=== PATIENT | female | born 1980 | race Caucasian/White ===

== ENCOUNTER 2022-09-17 09:52 | Outpatient (CLI) | payer OTHER, SELFPAY ==
--- NOTE | 2022-09-17 10:15 | CRLHL7_ITS ---
For Patients: As a result of the Century Cures Act, medical imaging exams and procedure reports are released immediately into your electronic medical record. You may view this report before your referring provider. If you have questions, please contact your health care provider. BILATERAL SCREENING MAMMOGRAM WITH COMPUTER-AIDED DETECTION AND TOMOSYNTHESIS TECHNIQUE: CC and MLO views were obtained. These mammographic images have been obtained using full-field digital technique. These mammographic images were interpreted with the benefit of computer-aided detection. Breast Tomosynthesis was used in this interpretation. COMPARISON FILM: 07/01/21, ([facility]NO[facility] 11/20/16). FINDINGS: The breasts are heterogeneously dense, which may obscure small masses IMPRESSION: There is no radiographic evidence for malignancy. ASSESSMENT: BI-RADS Category 1: Negative RECOMMENDATION: Routine screening mammogram in 1 year. A lay language report of this examination will be provided to the patient. Jason Cooley M.D. Diagnostic Radiologist [email or web address] DONALD/[email or web address] / be/Dictated by: Jason Cooley MD @ 09/17/2022 11:46:00 AM (Electronically Signed)
== END 2022-09-17 09:53 | disposition home or self-care (01) ==
LOC: MAMMO 09:53
PROVIDERS: PCP Physician Assistant Medical; Visit Provider Physician Assistant Medical
DX: Z12.31 Encounter for screening mammogram for malignant neoplasm of breast (principal); R92.2 Inconclusive mammogram
CPT/HCPCS: 77063; 77067

== ENCOUNTER 2023-09-11 09:40 | Outpatient (REF) | payer OTHER, SELFPAY | END 2023-09-11 09:41 | disposition home or self-care (01) | LOC: NFLDREF 09:40 | PROVIDERS: PCP Physician Assistant Medical; Referring Provider Physician Assistant Medical; Visit Provider Physician Assistant Medical | DX: Z13.228 Encounter for screening for other metabolic disorders (principal); Z13.220 Encounter for screening for lipoid disorders; Z13.29 Encounter for screening for other suspected endocrine disorder | CPT/HCPCS: 80053; 80061; 84443 ==

== ENCOUNTER 2023-09-21 13:14 | Outpatient (CLI) | payer OTHER, SELFPAY ==
--- NOTE | 2023-09-21 13:20 | MM_ITS ---
Patient: SOFIA COLE Facility:?[facility] Patient ID:?[id number] Site Patient ID:?[id number]. Site :?1980 Study:?XRay-Breast Bilateral 3D W/CAD-09/21/2023 3:42:54 PM Ordering Physician:Mine Final Report: BILATERAL SCREENING MAMMOGRAM WITH COMPUTER-AIDED DETECTION AND TOMOSYNTHESIS TECHNIQUE: CC and MLO views were obtained. These mammographic images have been obtained using full-field digital technique. These mammographic images were interpreted with the benefit of computer-aided detection. Breast Tomosynthesis was used in this interpretation. COMPARISON FILM: 09/17/22, 07/01/21, 11/20/16(LT). FINDINGS: The breasts are heterogeneously dense, which may obscure small masses. IMPRESSION: There is no radiographic evidence for malignancy. ASSESSMENT: BI-RADS Category 1: Negative RECOMMENDATION: Routine screening mammogram in 1 year. A lay language report of this examination will be provided to the patient. Jason Cooley M.D. Diagnostic Radiologist [email or web address] DSM/sp R& Transcribed: 3:32 p.m. SP/Dictated by: Jason Cooley MD @ 09/22/2023 8:45:00 AM Signed by:?Jason Cooley MD @09/23/2023 5:28:01 AM (Electronic Signature)
== END 2023-09-21 13:15 | disposition home or self-care (01) ==
LOC: MAMMO 13:15
PROVIDERS: PCP Physician Assistant Medical; Visit Provider Physician Assistant Medical
DX: Z12.31 Encounter for screening mammogram for malignant neoplasm of breast (principal); R92.2 Inconclusive mammogram
CPT/HCPCS: 77063; 77067

== ENCOUNTER 2023-09-23 12:31 | Emergency (ER) | payer OTHER, SELFPAY ==
[2023-09-23 12:40] VITALS: BP 108/77; PULSE 79; RESP 18; TEMP 36.5; O2SAT 100; BMI 26.6
--- NOTE | 2023-09-23 12:47 | XR_ITS ---
Patient: SOFIA COLE Facility:?[facility] Patient ID:?[id number] Site Patient ID:?[id number]. Site :?[id number] Study:?XRay-Chest 1V-09/23/2023 1:22:02 PM Ordering Physician:?DR. CANTRELL Final Report: Indication: Chest pain. Technique: 1 view(s) of the chest. Comparison: None available. Findings: Normal cardiomediastinal silhouette and pulmonary vasculature. Lungs are well inflated and clear. No focal consolidation, pleural effusion or pneumothorax. No acute osseous abnormality. Impression: No acute cardiopulmonary abnormality identified. Dictated by Heather Fernandez MD @ 09/23/2023 1:39:03 PM Signed by:?Heather Fernandez MD @09/23/2023 1:39:03 PM (Electronic Signature)
--- NOTE | 2023-09-23 12:54 | ED.GENADULT ---
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 She recently had an slightly elevated glucose but a normal A1c. This was at her read routine checkup. She felt this should be checked out today and presented to the ER. She has had no diaphoresis no nausea no neck or arm pain no radiation of discomfort she really describes a pain but more of a feeling of ?a bubble underneath by sternum?. Patient denies leg swelling, denies travel, denies bleeding or clotting problems. Does have an extensive history of mental health issues including migraine headache ext to borderline personality ADHD anxiety depression posttraumatic stress. Patient reports her mental health been stable. Related Data Home Medications Medication Instructions Recorded Confirmed clonidine HCl 0.1 mg tablet 0.1 mg PO BID 04/22/22 09/16/23 duloxetine 60 mg capsule,delayed 60 mg PO BID 04/22/22 09/16/23 release fluoxetine 40 mg capsule 40 mg PO DAILY 04/22/22 09/16/23 gabapentin 600 mg tablet 1,200 mg PO TID 04/22/22 09/16/23 glycopyrrolate 1 mg tablet mg PO BID 04/22/22 09/16/23 olanzapine 5 mg tablet 20 mg PO DAILY 04/22/22 09/16/23 brexpiprazole 2 mg tablet (Rexulti) 2 mg PO QAM 09/16/23 09/16/23 Previous Rx's Medication Instructions Recorded clotrimazole-betamethasone 1 1 applic topical BID #45 grams 09/16/23 %-0.05 % topical cream Allergies Allergy/AdvReac Type Severity Reaction Status Date / Time methocarbamol Allergy Intermediate Rash Verified 09/16/23 12:44 Penicillins Allergy Intermediate Swelling Verified 09/16/23 12:44 of Lip/Tongue/Throat Review of Systems Status of ROS: Reports: 6 or more systems reviewed and unremarkable except as noted in History and below [facility] Medical History Endometriosis (04/26/12) ?N80.9 - Endometriosis, unspecified (ICD-10) Vaginal after ?O34.219 - Maternal care for unspecified type scar from previous delivery (ICD-10) Ruptured ovarian cyst ?N83.209 - Unspecified ovarian cyst, unspecified side (ICD-10) Surgical History History of abdominoplasty ?Z98.890 - Other specified postprocedural states (ICD-10) Status post total abdominal hysterectomy ?Z90.710 - Acquired absence of both cervix and uterus (ICD-10) History of right salpingo-oophorectomy ?Z90.79 - Acquired absence of other genital organ(s) (ICD-10) ?Z90.721 - Acquired absence of ovaries, unilateral (ICD-10) History of exploratory laparotomy ?Z98.890 - Other specified postprocedural states (ICD-10) History of cystoscopy ?Z98.890 - Other specified postprocedural states (ICD-10) History of colposcopy ?Z98.890 - Other specified postprocedural states (ICD-10) History of section (09/06/12) ?Z98.891 - History of uterine scar from previous surgery (ICD-10) Family History Brother Coronary artery disease Father Coronary artery disease Uncle Coronary artery disease Aunt Diabetes Social History What is your current living situation?: I presently have a place to live Problems where you live: no known problems In the past 12 months, utilities in danger of being shut off: no In past 12 months, lack of transportation kept you from medical appts, meetings, work, or getting things needed for daily living: no In the past 12 mos, have been you worried that your food would run out before you had money to buy more?: never true In the past 12 mos, the food you bought just didn't last and you didn't have money to buy more?: never true Smoking Status: Former smoker How often does anyone, including family, friends and others, physically hurt you: never How often does anyone, including family, friends and others, insult or talk down to you: never How often does anyone, including family, friends and others, threaten you with harm: never How often does anyone, including family, friends and others, scream or curse at you: never Little interest or pleasure in doing things: several days Feeling down, depressed, or hopeless: several days Exam Narrative: Exam Narrative: Objective: Vital signs are within normal limits, blood pressure is 108/77 O2 sat 100% on room air In general patient apparent distress noncyanotic no difficulty breathing no complaint of pain or discomfort. HEENT is unremarkable neck supple nodes chest is clear heart rhythm regular heart murmur no palpable chest wall pain abdomen benign soft extremities are no edema neurologic nonfocal good peripheral perfusion legs without swelling. Const: Vital Signs, click to edit/add: Vital Signs - 24 hr 09/23/23 12:40 09/23/23 13:00 09/23/23 14:30 Temperature 97.7 F Pulse Rate [Pulse Oximeter] 79 73 73 Respiratory Rate 18 Blood Pressure [Ri ght Upper Arm] 108/77 120/76 113/78 Pulse Oximetry 100 97 95 Oxygen Delivery Me thod Room Air Room Air Room Air Course Vital Signs Vital signs: Initial Vital Signs Temperature 97.7 F 09/23/23 12:40 Temperature Source Temporal Artery Scan 09/23/23 12:40 Pulse Rate 79 09/23/23 12:40 Pulse Rhythm Regular 09/23/23 12:40 Pulse Strength 3+ Normal 09/23/23 12:40 Respiratory Rate 18 09/23/23 12:40 Blood Pressure 108/77 09/23/23 12:40 Blood Pressure Mean 87 09/23/23 12:40 Blood Pressure Position Sitting 09/23/23 12:40 Pulse Oximetry 100 09/23/23 12:40 Oxygen Delivery Method Room Air 09/23/23 12:40 Vital Signs Temperature 97.7 F 09/23/23 12:40 Pulse Rate 79 09/23/23 12:40 Respiratory Rate 18 09/23/23 12:40 Blood Pressure 108/77 09/23/23 12:40 Pulse Oximetry 100 09/23/23 12:40 Oxygen Delivery Method Room Air 09/23/23 12:40 Temperature 97.7 F 09/23/23 12:40 Pulse Rate 73 09/23/23 14:30 Respiratory Rate 18 09/23/23 12:40 Blood Pressure 113/78 09/23/23 14:30 Pulse Oximetry 95 09/23/23 14:30 Oxygen Delivery Method Room Air 09/23/23 14:30 Medications Administered Medications: Discontinued Medications Generic Name Dose Route Start Last Admin Trade Name Jesus PRN Reason Stop Dose Admin Aspirin 324 mg 09/23/23 12:48 09/23/23 13:00 Aspirin 81 Mg Tab.Chew PO 09/23/23 12:49 324 mg ONCE ONE Administration Sodium Chloride 500 mls @ 500 mls/hr 09/23/23 12:46 09/23/23 13:53 0.9 % Sodium Chloride 500 Ml IV 09/23/23 13:45 Infused .Q1H ONE Infusion Medical Decision Making MDM Narrative Medical decision making narrative: 43-year-old female with multiple mental health problems presents with a bubble feeling under her sternum, a slight probably anxiety about her blood pressure. Slightly elevated blood pressure from baseline. 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 Will get a chest x-ray, labs, p.o. aspirin. Disposition pending findings above and clinical status. Addendum 3:00 p.m.: The patient remains asymptomatic, she feels better, she did get aspirin. She has a normal EKG by my read no acute ST T wave changes she has a negative troponin. She has a negative chest x-ray. Laboratory studies show a normal white count normal hemoglobin, D-dimer is negative, ER profile is unremarkable, LFTs are normal, CRP is less than 0.5, proBNP is less than 20, viral studies are negative, test is negative. At this point I would recommend observation fluids continue to monitor blood pressure, P 1 confirm blood pressure readings with the pharmacy type blood pressure monitor compared to her own home monitor. Recheck with primary care in the next few days changes concerns worsening return to the ED. Patient was comfortable plan will follow up as directed thanks Lab Data Labs: Lab Results 09/23/23 09/23/23 09/23/23 Range/Units 12:47 13:05 13:12 WBC 9.10 (4.50-11.00) K/uL RBC 4.64 (4.00-5.20) m/uL Hgb 14.1 (12.0-16.0) gm/dL Hct 42.2 (33.0-51.0) % MCV 91 (80-100) fL MCH 30 (26-34) pg MCHC 33 (32-36) gm/dL RDW Coeff of Yady 12.9 (11.5-15.5) % Plt Count 280 (140-440) K/uL Neut % (Auto) 61.3 (42.0-72.0) % Lymph % (Auto) 29.1 (20-44) % [place] % (Auto) 6.2 (0.0-11.0) % Eos % (Auto) 2.3 (0.0-7.0) % Baso % (Auto) 0.3 (0.0-3.0) % Neut # (Auto) 5.58 (1.7-7.0) K/uL Lymph # (Auto) 2.65 (0.90-2.90) K/uL [place] # (Auto) 0.60 (0.00-0.90) K/UL Eos # (Auto) 0.21 (0.00-0.50) K/uL Baso # (Auto) 0.03 (0.00-0.30) K/uL Abs Immat Gran (auto) 0.07 (0.00-0.30) K/uL Imm/Tot Granulo (auto) 0.8 % INR 0.87 L (0.91-1.10) APTT 34 H (23-33) Seconds D-Dimer Quant (PE/DVT) 0.27 (0.00-0.50) ug/ml Sodium 136 (135-149) mmol/L Potassium 3.9 (3.6-5.1) mmol/L Chloride 102 (96-114) mmol/L Carbon Dioxide 23 (20-32) mmol/L Anion Gap 11 (7-15) mEq/L BUN 14 (5-24) mg/dL Creatinine 0.9 (0.5-1.5) mg/dL Estimated Creat Clear 72.53 Estimated GFR 81 ml/min Glucose 98 (60-115) mg/dL Calcium 9.5 (8.4-10.6) mg/dL Total Bilirubin 0.3 (0.1-1.5) mg/dL Direct Bilirubin 0.1 (0.0-0.5) mg/dL AST 23 (12-35) U/L ALT 25 (4-35) U/L Alkaline Phosphatase 55 (40-150) U/L C-Reactive Protein < 0.5 L (0.5-1.0) mg/dL NT-Pro-B Natriuret Pep < 20 pg/mL Total Protein 7.7 (6.0-8.3) g/dL Albumin 4.5 (3.3-5.0) g/dL HCG, Qual Negative (Negative) SARS-CoV-2 (PCR) Negative SARS-CoV-2 (Negative) Influenza Type A (PCR) Negative PCR FLU A (Negative) Influenza Type B (PCR) Negative PCR FLU B (Negative) RSV (PCR) Negative PCR RSV (Negative) POC Troponin I 0.01 (0.01-0.04) ng/ml Discharge Plan Discharge Clinical Impression: Elevated blood pressure reading, Chest fullness Patient Disposition: Home w/ Parent or Adult Condition: Improved Additional Instructions: Observe, normal activity, may wish to try some Maalox or antacid for few days. Your studies today look very reassuring including the lungs, the heart, the blood work. Recommend recheck with regular doctor next few days if continued problems or concerns or a continued elevated blood pressure, can return to the ED any time. Activity Level: No Restrictions Discharge Diet: Regular Prescriptions: No Action duloxetine 60 mg capsule,delayed release(DR/EC) 60 mg PO BID olanzapine 5 mg tablet 20 mg PO DAILY gabapentin 600 mg tablet 1,200 mg PO TID clonidine HCl 0.1 mg tablet 0.1 mg PO BID fluoxetine 40 mg capsule 40 mg PO DAILY glycopyrrolate 1 mg tablet PO BID Rexulti 2 mg tablet 2 mg PO QAM clotrimazole-betamethasone 1-0.05 % cream 1 applic topical BID Qty: 45 1RF Follow Up/Referrals: Meet Patel PANeelC [Primary Care Provider] - Stand Alone Forms: [employer] Info Instructions
[2023-09-23 13:00] VITALS: BP 120/76; PULSE 73; O2SAT 97
[2023-09-23] MEDS: ASPIRIN 81 MG TAB.CHEW 324 MG PO (13:00)
[2023-09-23] MEDS: 0.9 % SODIUM CHLORIDE 500 ML 500 ML IV (13:00)
[2023-09-23 13:25] LABS: Basophils Absolute Auto 0.03 K/uL (0.00-0.30); Basophils Percent Auto 0.3 % (0.0-3.0); Eosinophils Absolute Auto 0.21 K/uL (0.00-0.50); Eosinophils Percent Auto 2.3 % (0.0-7.0); Hematocrit 42.2 % (33.0-51.0); Hemoglobin* 14.1 gm/dL (12.0-16.0); Immature Granulocytes Abs Auto 0.07 K/uL (0.00-0.30); Immature Granulocytes Pct Auto 0.8 %; Lymphocytes Absolute Auto 2.65 K/uL (0.90-2.90); Lymphocytes Percent Auto 29.1 % (20-44); Mean Corpuscular HGB Conc 33 gm/dL (32-36); Mean Corpuscular Hemoglobin 30 pg (26-34); Mean Corpuscular Volume 91 fL (80-100); Monocytes Percent Auto 6.2 % (0.0-11.0); Neutrophils Absolute Auto 5.58 K/uL (1.7-7.0); Neutrophils Percent Auto 61.3 % (42.0-72.0); Platelet Count* 280 K/uL (140-440); RDW Coefficient of Variation % 12.9 % (11.5-15.5); Red Blood Count 4.64 m/uL (4.00-5.20)
[2023-09-23 13:30] LABS: Slide Review Reflex No
[2023-09-23 13:43] LABS: Albumin* 4.5 g/dL (3.3-5.0); Chloride* 102 mmol/L (96-114); INR 0.87 (0.91-1.10); Prothrombin Time 12.3 Seconds
[2023-09-23 13:44] LABS: Partial Thromboplastin Time* 34 Seconds (23-33); Potassium* 3.9 mmol/L (3.6-5.1); Sodium* 136 mmol/L (135-149)
[2023-09-23 13:44] LABS: Troponin, Point-of-Care* 0.01 ng/ml (0.01-0.04)
[2023-09-23 13:45] LABS: HCG Qualitative Serum* Negative (Negative)
[2023-09-23 13:46] LABS: Creatinine* 0.9 mg/dL (0.5-1.5); D Dimer Quantitative* 0.27 ug/ml (0.00-0.50); Est. Creatinine Clearance* 72.53; Estimated Glomerular Filt Rate 81 ml/min
[2023-09-23 13:47] LABS: Alanine Aminotransferase* 25 U/L (4-35); Alkaline Phosphatase* 55 U/L (40-150); Anion Gap 11 mEq/L (7-15); Aspartate Amino Transferase* 23 U/L (12-35); Bilirubin Direct* 0.1 mg/dL (0.0-0.5); Bilirubin Total* 0.3 mg/dL (0.1-1.5); Blood Urea Nitrogen* 14 mg/dL (5-24); Calcium* 9.5 mg/dL (8.4-10.6); Carbon Dioxide* 23 mmol/L (20-32); Glucose* 98 mg/dL (60-115); Total Protein* 7.7 g/dL (6.0-8.3)
[2023-09-23 13:52] LABS: PCR FLU A Negative PCR FLU A (Negative); PCR FLU B Negative PCR FLU B (Negative); PCR RSV Negative PCR RSV (Negative); SARS PCR* Negative SARS-CoV-2 (Negative)
[2023-09-23 14:03] LABS: C Reactive Protein* < 0.5 mg/dL (0.5-1.0); NT Pro B Type NatriureticPept* < 20 pg/mL
[2023-09-23 14:30] VITALS: BP 113/78; PULSE 73; O2SAT 95
== END 2023-09-23 15:08 | disposition home or self-care (01) ==
PROVIDERS: Emergency Provider Family Medicine; PCP Physician Assistant Medical
DX: R07.89 Other chest pain (principal); R03.0 Elevated blood-pressure reading, without diagnosis of hypertension
CPT/HCPCS: 36415; 71045; 80048; 80076; 83880; 84484; 84703; 85025; 85379; 85610; 85730; 86140; 87631; 93005; 94761; 96361; 96374; 99284; 99285; A9270; J7030

== ENCOUNTER 2023-11-04 14:29 | Outpatient (REF) | payer OTHER, SELFPAY ==
[2023-11-04 16:15] LABS: Amphetamine Screen Urine Negative (Negative); Barbiturate Screen Urine Negative (Negative); Benzodiazepines Screen Urine Negative (Negative); Cannabinoid Screen Urine POSITIVE (Negative); Cocaine Screen Urine Negative (Negative); Methadone Screen Urine Negative (Negative); Methamphetamines Screen Urine Negative (Negative); Opiate Screen Urine Negative (Negative); Oxycodone Screen Urine Negative (Negative); Phencyclidine Screen Urine Negative (Negative); Tricyclic Antidepressant Urine Negative (Negative)
== END 2023-11-04 14:30 | disposition home or self-care (01) ==
LOC: NPINS 14:29
PROVIDERS: PCP Physician Assistant Medical; Visit Provider Physician Assistant Medical
DX: F41.1 Generalized anxiety disorder (principal)
CPT/HCPCS: 80306

== ENCOUNTER 2023-11-23 23:39 | Outpatient (CLI) | payer OTHER, SELFPAY ==
[2023-11-24 04:09] LABS: Amphetamine Screen Urine Negative (Negative); Barbiturate Screen Urine Negative (Negative); Benzodiazepines Screen Urine POSITIVE (Negative); Cannabinoid Screen Urine POSITIVE (Negative); Cocaine Screen Urine Negative (Negative); Methadone Screen Urine Negative (Negative); Methamphetamines Screen Urine Negative (Negative); Opiate Screen Urine Negative (Negative); Oxycodone Screen Urine Negative (Negative); Phencyclidine Screen Urine Negative (Negative); Tricyclic Antidepressant Urine Negative (Negative)
== END 2023-11-23 23:40 | disposition home or self-care (01) ==
LOC: NPINS 23:46
PROVIDERS: PCP Physician Assistant Medical; Visit Provider Nurse Practitioner Psychiatric/Mental Health
DX: F90.9 Attention-deficit hyperactivity disorder, unspecified type (principal); Z79.899 Other long term (current) drug therapy
CPT/HCPCS: 80306

== ENCOUNTER 2025-01-02 09:02 | Outpatient (CLI) | payer OTHER, SELFPAY | END 2025-01-02 09:03 | disposition home or self-care (01) | LOC: NFLDREF 15:42 | PROVIDERS: PCP Physician Assistant Medical; Referring Provider Physician Assistant Medical; Visit Provider Physician Assistant Medical | DX: Z00.00 Encounter for general adult medical examination without abnormal findings (principal); F41.8 Other specified anxiety disorders; Z13.228 Encounter for screening for other metabolic disorders; Z13.6 Encounter for screening for cardiovascular disorders | CPT/HCPCS: 80053; 80061; 84443 ==

== ENCOUNTER 2025-02-22 13:47 | Outpatient (CLI) | payer OTHER, SELFPAY ==
--- NOTE | 2025-02-22 14:00 | CRLHL7_ITS ---
For Patients: As a result of the Cures Act, medical imaging exams and procedure reports are released immediately into your electronic medical record. You may view this report before your referring provider. If you have questions, please contact your health care provider. INDICATION: BILATERAL SCREENING MAMMOGRAM, ASYMPOTMATIC 44 Y/O FEMALE COMPARISON: 09/21/2023, 09/17/2022, 07/01/2021 TECHNIQUE: Digital mammogram in CC and MLO projections including computer-aided detection (CAD) and tomosynthesis. BREAST COMPOSITION: The breasts are heterogeneously dense, which may obscure small masses. FINDINGS: No suspicious findings. ASSESSMENT: BI-RADS 1 Negative RECOMMENDATION: Annual screening mammogram. A lay language report of this examination will be provided to the patient. Dictated by: Ethel Carlson MD @ 02/23/2025 13:39:48 (Electronically Signed)
== END 2025-02-22 13:48 | disposition home or self-care (01) ==
LOC: MAMMO 13:48
PROVIDERS: PCP Physician Assistant Medical; Visit Provider Physician Assistant Medical
DX: Z12.31 Encounter for screening mammogram for malignant neoplasm of breast (principal); R92.333 Mammographic heterogeneous density, bilateral breasts
CPT/HCPCS: 77063; 77067